=== PATIENT | female | born 1945 | race Caucasian/White ===

== ENCOUNTER 2022-06-08 10:35 | Observation (INO) | payer OTHER, SELFPAY ==
[2022-06-08] VITALS (13 sets, daily range): BP systolic 83–128; BP diastolic 39–66; PULSE 53–77; RESP 18–20; TEMP 36.1–36.9; O2SAT 92–98; BMI 25.3
--- NOTE | 2022-06-08 11:49 | ED_ITS ---
HPI - General Adult General Time Seen by Provider: 11:49 Date Seen: 06/08/22 Chief complaint: Dizziness/Vertigo Stated complaint: Low potassium Time Seen by Provider: 06/08/22 11:21 Source: patient and family History of Present Illness HPI narrative: Liza is a 77-year-old female past medical history includes COPD current daily smoker, vertigo hypertension presents emerged department with daughter with dizziness. Patient states that over the last few months she has had ongoing dizziness associated with prolonged standing and when she gets up. She gets a sensation of warmth and weakness through her body and she feels like she is going to pass out, she has not passed out in the past. She denies any chest pain or shortness of breath prior to these incidents, she has some associated nausea but no vomiting. She denies any focal weakness. She has had vertigo in the past she feels that this is different. She has no cardiac or stroke history. She was seen by a provider [facility] clinic yesterday they did some XR of her neck which were normal, patient denies any neck pain. Blood work was drawn and they thought her potassium was low, they took her off her diuretic which could be contributing to her symptoms, she was also orthostatic. Due to the low potassium provider call family to bring her to the emergency department. Patient denies any fevers, chills myalgias arthralgias, she denies any chest pain or shortness of breath, she has not had any nausea vomiting abdominal pain, she denies any urinary bowel complaints. She is asymptomatic right now. Providers in the past for thinking this was due to her vertigo. Related Data Allergies Allergy/AdvReac Type Severity Reaction Status Date / Time No Known Drug Allergies Allergy Verified 06/08/22 10:50 Review of Systems Status of ROS: Reports: 10 or more systems reviewed and unremarkable except as noted in History and below PFSH PFSH Social History Smoking Status: Current every day smoker What tobacco products do you use: cigarettes Do you use any of these nicotine containing products: E-Cigarettes Second hand tobacco smoke exposure: No How often do you have a drink containing alcohol: never How often do you have six or more drinks on one occasion: Never AUDIT-C Alcohol total score: 0 Non-prescribed substance use: denies use Exam Narrative: Exam Narrative: General: No obvious distress, nontoxic in appearance HEENT: Pupils equal round reactive to light, extraocular muscles intact, neck is supple full range of motion Tympanic membranes within normal limits bilaterally Lungs: Diminished but clear to auscultation bilateral Heart: S1-S2, normal sinus rhythm Abdomen: Soft nontender, bowel sounds present Muscle skeletal: +5 strength upper and lower extremities Neuro: Kelsy-Hallpike negative bilateral, no focal deficits, alert awake and oriented x3, gait within normal limits Pysch: Mood and affect normal Const: Vital Signs, click to edit/add: Vital Signs - 24 hr 06/08/22 10:50 06/08/22 12:21 Temperature 97 F L Pulse Rate [Pulse Oximeter] 59 L Pulse Rate [orthos tatic lying Right Pulse Oximeter] 54 L Pulse Rate [orthos tatic sitting Righ t Pulse Oximeter] 54 L Pulse Rate [orthos tatic standing Rig ht Pulse Oximeter] 62 Respiratory Rate 18 Blood Pressure [Ri ght Upper Arm] 127/58 L Blood Pressure [or thostatic lying Ri ght Arm] 107/49 L Blood Pressure [or thostatic sitting Right Arm] 102/50 L Blood Pressure [or thostatic standing Right Arm] 83/48 L Pulse Oximetry 94 Course Course Hospital Course: 11:30 AM: Workup will include, IV peripheral, will obtain orthostatic blood pressures, 1 L 0.9 normal saline bolus, will obtain EKG, troponin, CBC, BMP and magnesium. Less likely vertigo or central cause seems more related to orthostasis. Patient asymptomatic. Differential diagnosis includes CVA, BPV labyrinthitis Meniere's disease fits tubular neuritis orthostatic hypotension, migraine MS, viral syndrome, cardiac arrhythmia this was all etiologies. Reevaluation(s) Reevaluation #1: patient and daughter updated on her lab and ECG results. CBC showed no abnormalities, BMP showed critically low potassium at 2.1 possibly secondary to ongoing diuretic, metabolic panel otherwise within normal limits, troponin negative, EKG showed a sinus bradycardia nonspecific ST abnormality which was seen on previous, no acute changes compared to previous. Per ED provider. Patient was given 40 meq oral potassium chloride and 10 mEq IV, she was also given fluid bolus 0.9 normal saline orthostatics show blood pressure of 107/49 in changed to 83/48 on standing minimal symptoms. Due to the low potassium needing supplementation and her orthostatics plan to admit for observation and inpatient care. Spoke with Dr. Fidencio CRAIN hospitalist on-call and he accepts care of the patient. Time: 13:28 Vital Signs Vital signs: Initial Vital Signs Temperature 97 F L 06/08/22 10:50 Temperature Source Temporal Artery Scan 06/08/22 10:50 Pulse Rate 59 L 06/08/22 10:50 Pulse Rhythm 06/08/22 10:50 Respiratory Rate 18 06/08/22 10:50 Blood Pressure 127/58 L 06/08/22 10:50 Blood Pressure Mean 81 06/08/22 10:50 Pulse Oximetry 94 06/08/22 10:50 Oxygen Delivery Method 06/08/22 10:50 Vital Signs Temperature 97 F L 06/08/22 10:50 Pulse Rate 59 L 06/08/22 10:50 Respiratory Rate 18 06/08/22 10:50 Blood Pressure 127/58 L 06/08/22 10:50 Pulse Oximetry 94 06/08/22 10:50 Temperature 97 F L 06/08/22 10:50 Pulse Rate 54 L 06/08/22 12:21 Respiratory Rate 18 06/08/22 10:50 Blood Pressure 107/49 L 06/08/22 12:21 Pulse Oximetry 94 06/08/22 10:50 Medical Decision Making Lab Data Labs: Lab Results 06/08/22 06/08/22 06/08/22 Range/Units 12:05 12:05 13:20 WBC 7.97 (4.50-11.00) K/uL RBC 4.10 (4.00-5.20) m/uL Hgb 13.5 (12.0-16.0) gm/dL Hct 37.3 (33.0-51.0) % MCV 91 (80-100) fL MCH 33 (26-34) pg MCHC 36 (32-36) gm/dL RDW Coeff of Jessy 13.9 (11.5-15.5) % Plt Count 203 (140-440) K/uL Neut % (Auto) 70.0 (42.0-72.0) % Lymph % (Auto) 18.9 L (20-44) % [place] % (Auto) 9.8 (0.0-11.0) % Eos % (Auto) 0.8 (0.0-7.0) % Baso % (Auto) 0.4 (0.0-3.0) % Neut # (Auto) 5.58 (1.7-7.0) K/uL Lymph # (Auto) 1.50 (0.90-2.90) K/uL [place] # (Auto) 0.80 (0.00-0.90) K/UL Eos # (Auto) 0.06 (0.00-0.50) K/uL Baso # (Auto) 0.03 (0.00-0.30) K/uL Abs Immat Gran (auto) 0.01 (0.00-0.30) K/uL Sodium 137 (135-149) mmol/L Potassium 2.1 L* (3.6-5.1) mmol/L Chloride 101 (96-114) mmol/L Carbon Dioxide 28 (20-32) mmol/L BUN 19 (7-30) mg/dL Creatinine 1.4 (0.5-1.5) mg/dL Estimated Creat Clear 27.84 Estimated GFR 39 ml/min Glucose 121 H (60-115) mg/dL Calcium 8.8 (8.4-10.6) mg/dL Magnesium 1.8 (1.5-2.6) mg/dL Troponin I 0.02 (0.01-0.04) ng/mL Urine Color Yellow (Yellow) Urine Appearance Clear (Clear) Urine pH 7.0 (5.0-8.5) Ur Specific [place] 1.020 (1.000-1.030) Urine Protein 1+ A (Negative) Urine Glucose (UA) Negative (Negative) Urine Ketones Negative (Negative) Urine Blood Trace-intact A (Negative) Urine Nitrite Negative (Negative) Urine Bilirubin Negative (Negative) Urine Urobilinogen 0.2 (0.2-1.0) Ur Leukocyte Esterase 3+ A (Negative) Discharge Plan Discharge Clinical Impression: Orthostatic hypotension, Acute hypokalemia Patient Disposition: Admitted As Inpatient
[2022-06-08] MEDS: 0.9 % SODIUM CHLORIDE 1000 ml 1,000 ML IV (12:11)
[2022-06-08 12:22] LABS: Basophils Absolute Auto 0.03 K/uL (0.00-0.30); Basophils Percent Auto 0.4 % (0.0-3.0); Eosinophils Absolute Auto 0.06 K/uL (0.00-0.50); Eosinophils Percent Auto 0.8 % (0.0-7.0); Hematocrit 37.3 % (33.0-51.0); Hemoglobin* 13.5 gm/dL (12.0-16.0); Immature Granulocytes Abs Auto 0.01 K/uL (0.00-0.30); Lymphocytes Percent Auto 18.9 % (20-44); Mean Corpuscular HGB Conc 36 gm/dL (32-36); Mean Corpuscular Hemoglobin 33 pg (26-34); Mean Corpuscular Volume 91 fL (80-100); Monocytes Percent Auto 9.8 % (0.0-11.0); Neutrophils Absolute Auto 5.58 K/uL (1.7-7.0); Platelet Count* 203 K/uL (140-440); RDW Coefficient of Variation % 13.9 % (11.5-15.5); White Blood Count* 7.97 K/uL (4.50-11.00)
[2022-06-08 12:24] LABS: Slide Review Reflex No
[2022-06-08 12:35] LABS: Chloride* 101 mmol/L (96-114)
[2022-06-08 12:36] LABS: Sodium* 137 mmol/L (135-149)
[2022-06-08 12:38] LABS: Creatinine* 1.4 mg/dL (0.5-1.5); Est. Creatinine Clearance* 27.84; Estimated Glomerular Filt Rate 39 ml/min
[2022-06-08 12:39] LABS: Blood Urea Nitrogen* 19 mg/dL (7-30); Calcium* 8.8 mg/dL (8.4-10.6); Carbon Dioxide* 28 mmol/L (20-32); Glucose* 121 mg/dL (60-115); Magnesium* 1.8 mg/dL (1.5-2.6)
[2022-06-08 12:42] LABS: Potassium* 2.1 mmol/L (3.6-5.1)
--- NOTE | 2022-06-08 12:45 | ED.NURSE ---
Dr Noel updated on critical potassium level.
[2022-06-08 12:51] LABS: Troponin I* 0.02 ng/mL (0.01-0.04)
[2022-06-08] MEDS: POTASSIUM CHLORIDE 10 MEQ CAPSULE ER 40 MEQ PO (13:24)
[2022-06-08] MEDS: POTASSIUM CHLORIDE 10 MEQ/100 ML PIGGYBACK 100 MEQ IVPB (13:25)
[2022-06-08 13:26] LABS: Appearance Urine Clear (Clear); Bilirubin Urine Negative (Negative); Blood Urine Trace-intact (Negative); Color Urine Yellow (Yellow); Glucose Urine Negative (Negative); Ketones Urine Negative (Negative); Leukocyte Esterase Urine 3+ (Negative); Nitrite Urine Negative (Negative); Protein Urine 1+ (Negative); Urobilinogen Urine 0.2 (0.2-1.0)
--- NOTE | 2022-06-08 13:47 | W.PC.EDHO ---
Primary Language: Preferred Language: Orientation Status: [x] Alert & Oriented [] Slight Confusion [] Known Dx Dementia Transfers By: x[] Assist of 1 [] Assist of 2 [] Lift Active Medications Discontinued Medications Generic Name Dose Route Start Last Admin Trade Name Kevin PRN Reason Stop Dose Admin Sodium Chloride 1,000 mls @ 1,000 mls/hr 06/08/22 11:48 06/08/22 13:20 0.9 % Sodium Chloride 1000 Ml IV 06/08/22 12:47 Infused .Q1H ANA Infusion Potassium Chloride 10 meq in 100 mls @ 100 mls/hr 06/08/22 12:45 06/08/22 13:25 Potassium Chloride IVPB 06/08/22 13:44 100 mls/hr ONCE ONE Administration Potassium Chloride 40 meq 06/08/22 12:45 06/08/22 13:24 Potassium Chloride 10 Meq Capsule Er PO 06/08/22 12:46 40 meq ONCE ONE Administration Description of Symptoms ED Triage Present Problem reports that she has a k of 2.5 and was told to Description come here. [facility] due to dizziness, vertigo, weakness, fatigue and neck pain. had blood drawn- analyzed, neck x ray.. feels nauseated at times. maggi was dc'd today. was noted to have orthostatic changes with her bp dropping. ED Triage Date of Onset of 04/20/22 Symptoms Female History Patient No [place] Coma Scale [place] coma scale total score 15 Pain Pain Description [Left Neck] Dull, Achy,Chronic Pain Intensity [Left Neck] 2 Pain Scale Used [Left Neck] Numeric (1 - 10) IV Insertion/Site Date of IV Line Insertion [ 06/08/22 Left Forearm] Oxygen Administration Pulse Oximetry 98 Pulse Oximetry 98 Pulse Oximetry 96 Pulse Oximetry 94 Oxygen Delivery Method Room Air Oxygen Delivery Method Room Air Oxygen Delivery Method Room Air Oxygen Delivery Method Room Air Cardiac Monitoring EKG Method 12 Lead
[2022-06-08] MEDS: LIDOCAINE 5% PATCH 1 PATCH TRANSDERMA (13:58)
[2022-06-08 14:53] LABS: SARS PCR* Negative SARS-CoV-2 (Negative)
--- NOTE | 2022-06-08 15:03 | ED.NURSE ---
Pt and belongings brought to [facility] via [facility]
[2022-06-08 15:20] LABS: RBC Urine 0-2 (0-2); WBC Urine 0-2 (0-5)
--- NOTE | 2022-06-08 17:53 | PM.IMHP1 ---
Hospitalist- H&P: HPI History of Present Illness Time Seen by Provider: 17:30 Date Seen: 06/08/22 Chief complaint: Low potassium Narrative: Liza Durán is a 77 year old woman presented to the Outpatient Clinic yesterday for assessment orthostatic near syncopal episodes. Has been taking furosemide 40 mg daily for lower extremity edema. Has not had lower extremity for some time. Also uses compression stockings. Is not taking potassium supplements. Historically she did take llkb-[id number]-[id number] potassium supplements but she quit those sometime ago. For the past 1-2 months patient describes orthostasis. Some days it is worse than others. Off times when she transfers from sitting to standing she gently lowered herself to the ground when she feels that come on. Has not had any falls. When she was seen yesterday in the clinic they gabriel labs. Her physician called her at 5:00 a.m. this morning did tell her that her serum potassium level was 2.5 in recommend that she go to the emergency department for assessment. Patient has had a 7 lb weight loss from September until yesterday. Has had decreased appetite for maybe the past 2-3 years. Has a sense of nausea over the over the course of a month. Does not vomiting. A knowledge is decreased oral intake. Has constipation. Takes daily before no other laxatives. Denies chest heaviness, pressure, tightness, or pain. Denies cough or shortness of breath. Acknowledges orthostasis. Has not had any syncope. Intermittent nausea without vomiting for several months now. No fevers or rigors or diaphoresis. No blood loss of any sort. No major travel. No trauma or injury. In the process of trying to find new place to live. She would like to live in an assisted living center in closer to her daughter, Lindsey. Review of Systems Status of ROS: Reports: 6 or more systems reviewed and unremarkable except as noted in History and below [facility] Medical History Biliary dyskinesia Constipation Degenerative joint disease of spine Diverticulosis Edema History of aspiration pneumonia History of iron deficiency anemia Hyperlipidemia Insomnia Mild depression Osteoporosis Overflow stress urinary incontinence in female Pulmonary hypertension Tobacco dependence Vitamin D deficiency Surgical History History of appendectomy Previous back surgery S/P cataract extraction S/P cholecystectomy S/P tubal ligation Status post surgical removal of ganglion cyst Social History Highest level of school completed/degree received: some college, no degree Smoking Status: Current every day smoker What tobacco products do you use: cigarettes Do you use any of these nicotine containing products: E-Cigarettes Second hand tobacco smoke exposure: No How often do you have a drink containing alcohol: never How often do you have six or more drinks on one occasion: Never AUDIT-C Alcohol total score: 0 Non-prescribed substance use: denies use Caffeine: Yes service: No Meds Home Medications and Allergies Home Medications Medication Instructions Recorded Confirmed Type L.acidophilus-B.bifidum-B.longum 1 cap PO DAILY 06/08/22 06/08/22 History 240 mg (3 billion cell) capsule (Probiotic Colon Support) ascorbic acid (vitamin C) 1,000 mg 1 g PO BID 06/08/22 06/08/22 History capsule aspirin 81 mg tablet,delayed 81 mg PO DAILY 06/08/22 06/08/22 History release (Adult Aspirin Regimen) cholecalciferol (vitamin D3) 50 4,000 unit PO DAILY 06/08/22 06/08/22 History mcg (2,000 unit) capsule cyanocobalamin (vitamin B-12) 1,000 mcg PO DAILY 06/08/22 06/08/22 History 1,000 mcg tablet furosemide 20 mg tablet 40 mg PO DAILY 06/08/22 06/08/22 History ibuprofen 800 mg tablet 800 mg PO BID 06/08/22 06/08/22 History levothyroxine 75 mcg tablet 75 mcg PO DAILY 06/08/22 06/08/22 History melatonin 10 mg capsule 10 mg PO HS 06/08/22 06/08/22 History paroxetine HCl 10 mg tablet 10 mg PO DAILY 06/08/22 06/08/22 History paroxetine HCl 40 mg tablet 40 mg PO DAILY 06/08/22 06/08/22 History sennosides 8.6 mg-docusate sodium 1 tab-cap PO DAILY 06/08/22 06/08/22 History 50 mg tablet (Senna-S) simvastatin 20 mg tablet 20 mg PO HS 06/08/22 06/08/22 History trazodone 50 mg tablet 100 mg PO HS 06/08/22 06/08/22 History Allergies Allergy/AdvReac Type Severity Reaction Status Date / Time No Known Drug Allergies Allergy Verified 06/08/22 10:50 Exam Narrative: Exam Narrative: No acute distress. Pleasant. Cooperative. Articulate. Sometime seems to have a loss of words and looks to her daughter to answer questions. Alert and oriented to person, place, time, situation. Mood and affect are congruent. Midline trachea. Normal thyroid. Neck is supple. Does not have lymphadenopathy in the pre or postauricular chains anterior-posterior cervical chains, supraclavicular fossa, axilla bilaterally. Hearing is preserved. Vision is preserved. No icterus or conjunctival injection. Pupils equally round reactive to light and accommodation. Midline nasal septum. Normal buccal mucosa. Dentition in fair repair. Lungs are clear to auscultation. No wheezing, rhonchi, or rales. Heart tones with regular rhythm, normal S1-S2. Abdomen with active bowel sounds, soft, nontender. Extremities without edema. Palpable pulses upper and lower extremities. Skin is dry and intact. No tremor or asterixis or ataxia. Moves all 4 extremities. Const: Vital Signs, click to edit/add: Vital Signs - 24 hr 06/08/22 10:50 06/08/22 12:21 06/08/22 12:30 Temperature 97 F L Pulse Rate Pulse Rate [Left P ulse Oximeter] Pulse Rate [Pulse Oximeter] 59 L 58 L Pulse Rate [orthos tatic lying Right Pulse Oximeter] 54 L Pulse Rate [orthos tatic sitting Righ t Pulse Oximeter] 54 L Pulse Rate [orthos tatic standing Rig ht Pulse Oximeter] 62 Respiratory Rate 18 20 Blood Pressure [Ri ght Arm] Blood Pressure [Ri ght Upper Arm] 127/58 L 106/42 L Blood Pressure [or thostatic lying Ri ght Arm] 107/49 L Blood Pressure [or thostatic sitting Right Arm] 102/50 L Blood Pressure [or thostatic standing Right Arm] 83/48 L Pulse Oximetry 94 96 06/08/22 13:00 06/08/22 13:30 06/08/22 14:00 Temperature Pulse Rate Pulse Rate [Left P ulse Oximeter] Pulse Rate [Pulse Oximeter] 58 L 59 L 57 L Pulse Rate [orthos tatic lying Right Pulse Oximeter] Pulse Rate [orthos tatic sitting Righ t Pulse Oximeter] Pulse Rate [orthos tatic standing Rig ht Pulse Oximeter] Respiratory Rate 20 20 20 Blood Pressure [Ri ght Arm] Blood Pressure [Ri ght Upper Arm] 105/49 L 123/47 L 93/66 Blood Pressure [or thostatic lying Ri ght Arm] Blood Pressure [or thostatic sitting Right Arm] Blood Pressure [or thostatic standing Right Arm] Pulse Oximetry 98 98 98 06/08/22 14:30 06/08/22 15:00 06/08/22 15:48 Temperature 98.4 F Pulse Rate Pulse Rate [Left P ulse Oximeter] 54 L Pulse Rate [Pulse Oximeter] 55 L 60 Pulse Rate [orthos tatic lying Right Pulse Oximeter] Pulse Rate [orthos tatic sitting Righ t Pulse Oximeter] Pulse Rate [orthos tatic standing Rig ht Pulse Oximeter] Respiratory Rate 20 20 18 Blood Pressure [Ri ght Arm] 128/58 L Blood Pressure [Ri ght Upper Arm] 86/47 L 98/44 L Blood Pressure [or thostatic lying Ri ght Arm] Blood Pressure [or thostatic sitting Right Arm] Blood Pressure [or thostatic standing Right Arm] Pulse Oximetry 95 96 06/08/22 17:34 Temperature Pulse Rate 53 L Pulse Rate [Left P ulse Oximeter] Pulse Rate [Pulse Oximeter] Pulse Rate [orthos tatic lying Right Pulse Oximeter] Pulse Rate [orthos tatic sitting Righ t Pulse Oximeter] Pulse Rate [orthos tatic standing Rig ht Pulse Oximeter] Respiratory Rate Blood Pressure [Ri ght Arm] Blood Pressure [Ri ght Upper Arm] Blood Pressure [or thostatic lying Ri ght Arm] Blood Pressure [or thostatic sitting Right Arm] Blood Pressure [or thostatic standing Right Arm] Pulse Oximetry Documenting provider has reviewed patient's vital signs: yes Hospitalist - H&P: Result Labs Labs: Short CBC 06/08/22 Range/Units 12:05 WBC 7.97 (4.50-11.00) K/uL Hgb 13.5 (12.0-16.0) gm/dL Hct 37.3 (33.0-51.0) % Plt Count 203 (140-440) K/uL BMP 06/08/22 12:05 Sodium 137 Potassium 2.1 L* Chloride 101 Carbon Dioxide 28 BUN 19 Creatinine 1.4 Glucose 121 H Calcium 8.8 Cardiac Enzymes 06/08/22 Range/Units 12:05 Troponin I 0.02 (0.01-0.04) ng/mL Urine 06/08/22 Range/Units 13:20 Urine Color Yellow (Yellow) Urine Appearance Clear (Clear) Urine pH 7.0 (5.0-8.5) Ur Specific [place] 1.020 (1.000-1.030) Urine Protein 1+ A (Negative) Urine Glucose (UA) Negative (Negative) Assessment and Plan Assessment and plan (1) Acute hypokalemia: Problem comment: Presumed etiology is related to furosemide use without adequate potassium supplementation. Additionally has decreased oral intake. Lastly also takes laxative once daily. Status: Acute Assessment and Plan: Potassium supplementation. Monitor potassium, magnesium, and renal function while in hospital. Recommended discontinuation of the furosemide altogether at this time. If at some point in the future consideration is given to the possibility of her resuming furosemide, certainly potassium supplementation will be warranted. Hold her daily laxative. Should the laxative be warranted will need to use something like polyethylene glycol (MiraLax). Will also need to monitor potassium levels and to make certain they remain safe. (2) Orthostatic hypotension: Problem comment: Presumably related to chronic use of furosemide with decreased oral intake. Doubt autonomic neuropathy at this time. May need to consider if her condition is persistent or worsens. Status: Acute Assessment and Plan: Recheck orthostatic blood pressures and pulses on the floor. Consider normal saline IV fluid boluses. (3) Proteinuria: Problem comment: Likely related to longstanding hypertension. Status: Acute Assessment and Plan: Will warrant additional outpatient assessment. With her orthostatic hypotension right now I am stopping her losartan. Consider restarting this in the future to address the proteinuria. Plan 1. Reviewed my impression with the patient and her daughter, Lindsey Carmona. 2. Patient designates her daughter, Lindsey, as her power of corporate associate attorney for health should that be required. She lives cell phone number is [phone]. 3. Patient on hesitatingly requests DNR DNI resuscitation status. 4. Continue with other supportive measures. 5. Answered patient's and daughter's questions to their satisfaction. They asked us to proceed.
[2022-06-08] MEDS: POTASSIUM BICARB 25 MEQ EFFERVESCENT TAB PO ×2 (18:27→20:42)
--- NOTE | 2022-06-08 19:15 | PC.NURSE ---
Pt. alert and oriented x3. Pt. up to floor from ED at 1505 accompanied by daughter Lindsey. Pt. denies any pain. Vitals are stable. Pt. able to ambulate independently. K+ 2.1 recheck at 1930. Report given to
[2022-06-08 19:46] LABS: Potassium* 3.3 mmol/L (3.6-5.1)
[2022-06-08] MEDS: TRAZODONE HCL 50 MG TABLET 100 MG PO (20:47)
[2022-06-08] MEDS: SIMVASTATIN 20 MG TABLET PO (20:47)
[2022-06-08] MEDS: MELATONIN 3 MG TABLET 9 MG PO (20:47)
[2022-06-08] MEDS: 0.9 % SODIUM CHLORIDE 500 ML 500 ML IV (22:30)
[2022-06-09 03:00] VITALS: BP 105/45; PULSE 65; RESP 18; TEMP 36.8; O2SAT 93
[2022-06-09] MEDS: LEVOTHYROXINE 75 MCG TABLET PO (06:33)
[2022-06-09 07:00] VITALS: PULSE 54
[2022-06-09 08:00] VITALS: BP 110/50; PULSE 52; RESP 18; TEMP 36.7; O2SAT 94
[2022-06-09 08:26] LABS: Albumin* 3.3 g/dL (3.3-5.0); Chloride* 107 mmol/L (96-114); Potassium* 3.2 mmol/L (3.6-5.1); Sodium* 136 mmol/L (135-149)
[2022-06-09 08:29] LABS: Blood Urea Nitrogen* 20 mg/dL (7-30); Calcium* 8.2 mg/dL (8.4-10.6); Carbon Dioxide* 27 mmol/L (20-32); Est. Creatinine Clearance* 38.97; Estimated Glomerular Filt Rate 58 ml/min; Glucose* 115 mg/dL (60-115); Phosphorus* 2.8 mg/dL (2.5-4.5)
[2022-06-09 08:30] LABS: Magnesium* 1.9 mg/dL (1.5-2.6)
--- NOTE | 2022-06-09 08:50 | P.DS_ITS ---
DS: Providers Provider Time Seen by Provider: 08:50 Date Seen: 06/09/22 Date of admission: 06/08/22 14:06 Primary care physician: Raine Bell MD Admitting Clinician: Addison Nicolas MD Consults: 06/08/22 17:34 Consult to Nutrition [CONS] Routine Comment: Reason for consult:: Miscellaneous Comment: hypokalemia; decreased appetite Attending Physician on discharge: Addison Nicolas MD Date of Discharge: 06/09/22 DS: Diagnosis Discharge Diagnosis (1) Acute hypokalemia: Status: Acute Problem details: Presumed etiology is related to furosemide use without adequate potassium supplementation. Additionally has decreased oral intake. Lastly also takes laxative once daily. (2) Orthostatic hypotension: Status: Acute Problem details: Presumably related to chronic use of furosemide with decreased oral intake. Doubt autonomic neuropathy at this time. May need to consider if her condition is persistent or worsens. DS: Summary Hospital Course Hospital Course: Patient is a 77-year-old woman who was on oral diuretics at home and discontinued her potassium. She was admitted with the potassium of 2.0 was responded well to both oral and IV supplementation. Patient had no signs of ectopy. She has no peripheral edema. Potassium this morning is 3.2. She would like to go home. Time Spent with Patient Time attestation: Total time spent providing and/or coordinating discharge services: Time spent: Greater than 30 minutes Exam Narrative: Exam Narrative: EXAM GENERAL: Patient appears comfortable and well. EYES: No scleral icterus. LYMPH: No supraclavicular or cervical lymphadenopathy. SKIN: Visible skin seen during exam normal or with benign process only. EXT: No dependent lower extremity pedal edema. HEART: Regular rate and rhythm with no murmurs, rubs, or gallops. LUNGS: Clear to auscultation bilaterally with no crackles or wheezes. ABD: Soft, non tender, non distended. PSYCH: Good eye contact, speech is not pressured. Const: Vital Signs, click to edit/add: Vital Signs - 24 hr 06/08/22 10:50 06/08/22 12:21 06/08/22 12:30 Temperature 97 F L Pulse Rate Pulse Rate [Left P ulse Oximeter] Pulse Rate [Pulse Oximeter] 59 L 58 L Pulse Rate [orthos tatic lying Right Pulse Oximeter] 54 L Pulse Rate [orthos tatic sitting Righ t Pulse Oximeter] 54 L Pulse Rate [orthos tatic standing Rig ht Pulse Oximeter] 62 Respiratory Rate 18 20 Blood Pressure [Ri ght Arm] Blood Pressure [Ri ght Upper Arm] 127/58 L 106/42 L Blood Pressure [or thostatic lying Ri ght Arm] 107/49 L Blood Pressure [or thostatic sitting Right Arm] 102/50 L Blood Pressure [or thostatic standing Right Arm] 83/48 L Pulse Oximetry 94 96 06/08/22 13:00 06/08/22 13:30 06/08/22 14:00 Temperature Pulse Rate Pulse Rate [Left P ulse Oximeter] Pulse Rate [Pulse Oximeter] 58 L 59 L 57 L Pulse Rate [orthos tatic lying Right Pulse Oximeter] Pulse Rate [orthos tatic sitting Righ t Pulse Oximeter] Pulse Rate [orthos tatic standing Rig ht Pulse Oximeter] Respiratory Rate 20 20 20 Blood Pressure [Ri ght Arm] Blood Pressure [Ri ght Upper Arm] 105/49 L 123/47 L 93/66 Blood Pressure [or thostatic lying Ri ght Arm] Blood Pressure [or thostatic sitting Right Arm] Blood Pressure [or thostatic standing Right Arm] Pulse Oximetry 98 98 98 06/08/22 14:30 06/08/22 15:00 06/08/22 15:48 Temperature 98.4 F Pulse Rate Pulse Rate [Left P ulse Oximeter] 54 L Pulse Rate [Pulse Oximeter] 55 L 60 Pulse Rate [orthos tatic lying Right Pulse Oximeter] Pulse Rate [orthos tatic sitting Righ t Pulse Oximeter] Pulse Rate [orthos tatic standing Rig ht Pulse Oximeter] Respiratory Rate 20 20 18 Blood Pressure [Ri ght Arm] 128/58 L Blood Pressure [Ri ght Upper Arm] 86/47 L 98/44 L Blood Pressure [or thostatic lying Ri ght Arm] Blood Pressure [or thostatic sitting Right Arm] Blood Pressure [or thostatic standing Right Arm] Pulse Oximetry 95 96 06/08/22 17:34 06/08/22 20:00 06/08/22 23:00 Temperature 98.4 F Pulse Rate 53 L 67 Pulse Rate [Left P ulse Oximeter] 54 L Pulse Rate [Pulse Oximeter] Pulse Rate [orthos tatic lying Right Pulse Oximeter] 77 Pulse Rate [orthos tatic sitting Righ t Pulse Oximeter] 68 Pulse Rate [orthos tatic standing Rig ht Pulse Oximeter] 62 Respiratory Rate 18 Blood Pressure [Ri ght Arm] 128/58 L Blood Pressure [Ri ght Upper Arm] Blood Pressure [or thostatic lying Ri ght Arm] 96/44 L Blood Pressure [or thostatic sitting Right Arm] 90/40 L Blood Pressure [or thostatic standing Right Arm] 86/39 L Pulse Oximetry 96 06/08/22 23:30 06/09/22 03:00 06/09/22 07:00 Temperature 98.4 F 98.3 F Pulse Rate 54 L Pulse Rate [Left P ulse Oximeter] 71 65 Pulse Rate [Pulse Oximeter] Pulse Rate [orthos tatic lying Right Pulse Oximeter] Pulse Rate [orthos tatic sitting Righ t Pulse Oximeter] Pulse Rate [orthos tatic standing Rig ht Pulse Oximeter] Respiratory Rate 18 18 Blood Pressure [Ri ght Arm] 91/41 L 105/45 L Blood Pressure [Ri ght Upper Arm] Blood Pressure [or thostatic lying Ri ght Arm] Blood Pressure [or thostatic sitting Right Arm] Blood Pressure [or thostatic standing Right Arm] Pulse Oximetry 92 93 DS: Data Data Completed and Pending Labs on day of discharge: Labs from last 24 hours 06/09/22 06/09/22 06/08/22 06:21 06:21 19:30 WBC RBC Hgb Hct MCV MCH MCHC RDW Coeff of Jessy Plt Count Neut % (Auto) Lymph % (Auto) Baldwin % (Auto) Eos % (Auto) Baso % (Auto) Neut # (Auto) Lymph # (Auto) Baldwin # (Auto) Eos # (Auto) Baso # (Auto) Abs Immat Gran (auto) Sodium 136 Potassium 3.2 L 3.3 L Chloride 107 Carbon Dioxide 27 BUN 20 Creatinine 1.0 Estimated Creat Clear 38.97 Estimated GFR 58 Glucose 115 Lactate 1.0 Calcium 8.2 L Phosphorus 2.8 Magnesium 1.9 Troponin I Albumin 3.3 TSH Urine Color Urine Appearance Urine pH Ur Specific Mcewen Urine Protein Urine Glucose (UA) Urine Ketones Urine Blood Urine Nitrite Urine Bilirubin Urine Urobilinogen Ur Leukocyte Esterase Urine RBC Urine WBC Ur Squamous Epith Cells Urine Bacteria SARS-CoV-2 (PCR) 06/08/22 06/08/22 06/08/22 13:30 13:20 12:05 WBC RBC Hgb Hct MCV MCH MCHC RDW Coeff of Jessy Plt Count Neut % (Auto) Lymph % (Auto) Baldwin % (Auto) Eos % (Auto) Baso % (Auto) Neut # (Auto) Lymph # (Auto) Baldwin # (Auto) Eos # (Auto) Baso # (Auto) Abs Immat Gran (auto) Sodium Potassium Chloride Carbon Dioxide BUN Creatinine Estimated Creat Clear Estimated GFR Glucose Lactate Calcium Phosphorus Magnesium Troponin I Albumin TSH 3.360 Urine Color Yellow Urine Appearance Clear Urine pH 7.0 Ur Specific Mcewen 1.020 Urine Protein 1+ A Urine Glucose (UA) Negative Urine Ketones Negative Urine Blood Trace-intact A Urine Nitrite Negative Urine Bilirubin Negative Urine Urobilinogen 0.2 Ur Leukocyte Esterase 3+ A Urine RBC 0-2 Urine WBC 0-2 Ur Squamous Epith Cells None Urine Bacteria None SARS-CoV-2 (PCR) Negative SARS-CoV-2 06/08/22 06/08/22 12:05 12:05 WBC 7.97 RBC 4.10 Hgb 13.5 Hct 37.3 MCV 91 MCH 33 MCHC 36 RDW Coeff of Jessy 13.9 Plt Count 203 Neut % (Auto) 70.0 Lymph % (Auto) 18.9 L Baldwin % (Auto) 9.8 Eos % (Auto) 0.8 Baso % (Auto) 0.4 Neut # (Auto) 5.58 Lymph # (Auto) 1.50 Baldwin # (Auto) 0.80 Eos # (Auto) 0.06 Baso # (Auto) 0.03 Abs Immat Gran (auto) 0.01 Sodium 137 Potassium 2.1 L* Chloride 101 Carbon Dioxide 28 BUN 19 Creatinine 1.4 Estimated Creat Clear 27.84 Estimated GFR 39 Glucose 121 H Lactate Calcium 8.8 Phosphorus Magnesium 1.8 Troponin I 0.02 Albumin TSH Urine Color Urine Appearance Urine pH Ur Specific Mcewen Urine Protein Urine Glucose (UA) Urine Ketones Urine Blood Urine Nitrite Urine Bilirubin Urine Urobilinogen Ur Leukocyte Esterase Urine RBC Urine WBC Ur Squamous Epith Cells Urine Bacteria SARS-CoV-2 (PCR) Discharge Plan Discharge Disposition: Home, Self-Care Date of Admission: 06/08/22 14:06 Attending Provider on Discharge: Addison Nicolas Primary Care Provider: Raine Bell Condition: Stable Anticipated Discharge Date/Time: 06/09/22 08:44 Discharge Medications: New potassium chloride 10 mEq tablet extended release 10 meq PO DAILY Qty: 30 2RF Continued cyanocobalamin (vitamin B-12) 1,000 mcg tablet 1,000 mcg PO DAILY 0RF ibuprofen 800 mg tablet 800 mg PO BID 0RF levothyroxine 75 mcg tablet 75 mcg PO DAILY 0RF paroxetine HCl 10 mg tablet 10 mg PO DAILY 0RF Label Comments: TOTAL DAILY DOSE = 50MG paroxetine HCl 40 mg tablet 40 mg PO DAILY 0RF Label Comments: Total dose = 50 mg daily sennosides-docusate sodium [Senna-S] 8.6-50 mg tablet 1 tab-cap PO DAILY 0RF simvastatin 20 mg tablet 20 mg PO HS 0RF trazodone 50 mg tablet 100 mg PO HS 0RF ascorbic acid (vitamin C) 1,000 mg capsule 1 g PO BID 0RF Probiotic Colon Support 240 mg (3 billion cell) capsule 1 cap PO DAILY 0RF cholecalciferol (vitamin D3) 50 mcg (2,000 unit) capsule 4,000 unit PO DAILY 0RF aspirin [Adult Aspirin Regimen] 81 mg tablet,delayed release (DR/EC) 81 mg PO DAILY 0RF melatonin 10 mg capsule 10 mg PO HS 0RF Discontinued furosemide 20 mg tablet 40 mg PO DAILY 0RF Discharge Orders: Discharge Order (Routine); Ordered 06/09/22 Ordered By: Addison Nicolas Patient Education: Hypokalemia (DC) Activity Level: No Restrictions Discharge Diet: Regular Follow Up Appointments: Raine Bell MD [Primary Care Provider] - (Follow up on Monday with Basic Metabolic Panel) Forms: [employer] Info Instructions
[2022-06-09] MEDS: ASPIRIN 81 MG TABLET EC PO (09:09)
[2022-06-09] MEDS: PARoxetine 20 MG TABLET 50 MG PO (09:09)
[2022-06-09] MEDS: CYANOCOBALAMIN (VITAMIN B-12) 500 MCG TABLET 1000 MCG PO (09:09)
--- NOTE | 2022-06-09 09:10 | NUTR.NU ---
RDN with MD consult for diet education related to low potassium. RDN visited with patient and designated caregiver, Lindsey, patient's daughter. RDN provided diet education on a high potassium foods. Discussed mindful eating and trying to include high potassium foods in her diet more often. Patient reports eating 2 meals daily (breakfast and dinner) and a banana around mid-day. Recommended patient to aim for at least 2,600 mg of potassium daily. Handouts from [facility] provided to support discussion. Patient and designated caregiver had no questions or concerns. RDN's contact information was given and patient was encouraged to contact with questions.
--- NOTE | 2022-06-09 12:25 | PC.NURSE ---
PATIENT'S VSS AND AFEBRILE. LS CLEAR. BS ACTIVE AND PASSING GAS. PATIENT TOLERATED REGULAR DIET FOR BREAKFAST WITH NO C/O N/V. PATIENT DENIED FEELING DIZZY OR LIGHTHEADED. SL DC'D. REVIEWED DC INSTRUCTIONS WITH PATIENT AND HER DAUGHTER AND BOTH DENIED QUESTIONS OR CONCERNS. PATIENT DC'D HOME VIA DAUGHTER.
== END 2022-06-09 10:27 | disposition home or self-care (01) ==
LOC: ED 13:26 → MEDSURG 14:40
PROVIDERS: Internal Medicine; Admitting Provider Internal Medicine; Emergency Provider Student in an Organized Health Care Education/Training Program; PCP Family Medicine; Visit Provider Internal Medicine
DX: I95.1 Orthostatic hypotension (principal); E87.6 Hypokalemia; R42 Dizziness and giddiness; R80.9 Proteinuria, unspecified; Z79.82 Long term (current) use of aspirin; F17.200 Nicotine dependence, unspecified, uncomplicated; R60.0 Localized edema; Z98.51 Tubal ligation status; Z90.49 Acquired absence of other specified parts of digestive tract
CPT/HCPCS: 36415; 80048; 80069; 81001; 83605; 83735; 84132; 84443; 84484; 85025; 87635; 93005; 94761; 99283; 99284; G0378; A9270; G0379; J3480; J7030; J7120